=== PATIENT | female | born 1995 | race Caucasian/White ===

== ENCOUNTER 2017-02-20 17:45 | Inpatient (IN) | END 2017-02-21 17:30 | disposition home or self-care (01) | DRG 494 | DX: S82.842A Displaced bimalleolar fracture of left lower leg, initial encounter for closed fracture (principal); M65.872 Other synovitis and tenosynovitis, left ankle and foot; S93.431A Sprain of tibiofibular ligament of right ankle, initial encounter; V00.131A Fall from skateboard, initial encounter; Y92.219 Unspecified school as the place of occurrence of the external cause ==